=== PATIENT | male | born 1975 | race Two or more races ===

== ENCOUNTER 2018-04-06 13:39 | Emergency (ER) | payer MEDICAID ==
[2018-04-06 14:00] VITALS: BP 107/56; PULSE 60; RESP 18; TEMP 98.3; O2SAT 100
== END 2018-04-06 14:08 | disposition left against medical advice (07) ==
LOC: ED 13:39 → MERGE 13:39 → ED 14:08
DX: Z02.89 Encounter for other administrative examinations (principal); M79.603 Pain in arm, unspecified